=== PATIENT | male | born 1980 | race Caucasian/White ===

== ENCOUNTER 2016-05-19 06:48 | Emergency (ER) | payer OTHER, MEDICAID ==
[~2016-05-19] VITALS: Ht 172.7 cm; Wt 104.0 kg
[~2016-05-19 06:48] MED LIST: AMIT1TAB79 PO; BUSP5TAB PO; COLA100C3 PO; COZA25TA PO; HYDR-3533 PO; IBUP800T23 PO
[2016-05-19 06:53] VITALS: BP 138/106; PULSE 84; RESP 16; TEMP 97.5; O2SAT 95
[2016-05-19] MEDS ORDERED: PERC10TA27 PO (07:09)
[2016-05-19] MEDS ORDERED: predniSONE 20 MG TAB PO ONE (07:15)
[2016-05-19] MEDS ORDERED: AZITHROMYCIN 250 MG TAB PO ONE (07:15)
[2016-05-19] MEDS ORDERED: SODIUM CHLORIDE 0.9% FLUSH 5 ML FLUSH IVF PRN (07:15)
[2016-05-19] MEDS: RESP: ALBUTEROL 2.5 MG/IPRATROPIUM 0.5 MG NEB (SCH) INH ×2 (07:18→07:19)
--- NOTE | 2016-05-19 07:32 | RADHPO ---
EXAM DATE/TIME: 05/19/2016 07:17 [place] COMPARISON: No previous studies available for comparison. INDICATIONS : Short of breath, cough MEDICAL HISTORY : None. SURGICAL HISTORY : None. ENCOUNTER: Initial ACUITY: 3 days PAIN SCORE: 0/10 LOCATION: Bilateral chest FINDINGS: Portable AP view of the chest demonstrates a normal-sized cardiac silhouette. No effusion, consolidat ion, or pneumothorax is visualized. The bones and soft tissues demonstrate no acute abnormality. CONCLUSION: No acute cardiopulmonary abnormality is identified. Frantz Corrales MD on May 19, 2016 at 7:26 Board Certified Radiologist. This report was verified electronically.
[2016-05-19] MEDS ORDERED: VENTAER INH (08:01)
[2016-05-19] MEDS ORDERED: PRED-503 PO (08:01)
[2016-05-19] MEDS ORDERED: ZITHTAB PO (08:01)
--- NOTE | 2016-05-19 08:05 | PD ---
HPI Chief Complaint: Cold / Flu Symptoms Time Seen by Provider: 07:00 Travel History International Travel<30 days: No Contact w/Intl Traveler<30days: No Traveled to known affect area: No History of Present Illness HPI 35-year-old man who presents to the emergency department complaining of intermittent breathing problems for 2 years, treated with an inhaler in the past , no definite history of asthma. No diagnosis. Is a worsening shortness of breath especially at night over the past several days associated with cough, chills, no fever. Profundus or symptoms at home. He otherwise had been feeling generally well and healthy. History Past Medical History Narrative Medical On chronic opiates for chronic headache following TBI Hypertension Depression Social History Alcohol Use: Yes (weekly) Tobacco Use: Yes (1 pack per 3 months) Allergies-Medications (Allergen,Severity, Reaction): Coded Allergies: Codeine (Verified Allergy, Unknown, 05/19/16) Reported Meds & Prescriptions Reported Meds & Active Scripts Active Reported Percocet (Oxycodone-Acetaminophen) 10-325 mg Tab 1 Tab PO Q4H PRN Ibuprofen 800 Mg Tab 800 Mg PO TID Cozaar (Losartan Potassium) 25 Mg Tab 12.5 Mg PO DAILY Buspirone (Buspirone HCl) 5 Mg Tab 5 Mg PO DAILY Review of Systems Except as stated in HPI: all other systems reviewed are Neg Physical Exam Narrative GENERAL: A 35-year-old man, no acute distress. SKIN: Warm and dry. HEAD: Atraumatic. Normocephalic. EYES: Pupils equal and round. No scleral icterus. No injection or drainage. ENT: No nasal bleeding or discharge. Mucous membranes pink and moist. NECK: Trachea midline. No JVD. CARDIOVASCULAR: Regular rate and rhythm. No murmur appreciated. RESPIRATORY: Coarse breath sounds with moderate diffuse wheezing. GASTROINTESTINAL: Abdomen soft, non-tender, nondistended. Hepatic and splenic margins not palpable. MUSCULOSKELETAL: No obvious deformities. No edema. NEUROLOGICAL: Awake and alert. No obvious cranial nerve deficits. Motor grossly within normal limits. Normal speech. PSYCHIATRIC: Appropriate mood and affect; insight and judgment normal. Data Data Last Documented VS Vital Signs Date Time Temp Pulse Resp B/P Pulse Ox O2 Delivery O2 Flow Rate FiO2 05/19/16 06:53 97.5 84 16 138/106 95 Orders Influenzae A/B Antigen (05/19/16 07:08) Chest, Single Ap (05/19/16 07:08) Sodium Chloride 0.9% Flush (Ns Flush) (05/19/16 07:15) Albuterol-Ipratropium Neb (Duoneb Neb) (05/19/16 07:15) Azithromycin (Zithromax) (05/19/16 07:15) Prednisone (Deltasone) (05/19/16 07:15) MDM Medical Decision Making Medical Screen Exam Complete: Yes Emergency Medical Condition: Yes Interpretation(s) Flu negative X-ray negative Differential Diagnosis URI, asthma, pneumonia, flu, other Narrative Course Medical decision making 35-year-old man with history of shortness of breath problems, greater diagnosis , presents with cough congestion and wheezing. Audible wheezing on exam. Suspect reactive airway disease/asthma/COPD. Looks well. Given bronchodilators with significant improvement. Continue steroid bronchodilators and antibiotics. Diagnosis Primary Impression: Acute bronchitis Qualified Code: J20.9 - Acute bronchitis, unspecified organism Additional Impression: Reactive airway disease Qualified Code: J45.909 - Reactive airway disease, unspecified asthma severity , uncomplicated Additional Instructions: Take antibiotics as prescribed. Use albuterol every 4 hours until symptoms resolve. Take antibiotics as prescribed. Return to the emergency department for any worsening trouble breathing, no new or worsening symptoms. Follow-up with her primary doctor in 4 days. Med/Other Pt SpecificInfo: Prescription(s) given Scripts Albuterol 18 GM Inh (Ventolin Hfa 18 GM Inh)90 Mcg/Act Aer2 Puff INH Q4-6H PRN ( SHORTNESS OF BREATH) #1 INHALER Prov:Aniceto Queen MD 05/19/16 Prednisone (Deltasone)20 Mg Tab60 Mg PO DAILY 5 Days Prov:Aniceto Queen MD 05/19/16 Azithromycin (Zithromax Z-Horace)250 Mg [id number] Mg PO DIRECTED #1 DSPK 500 MG (2 tabs) day 1, then 1 tab days 2-5. Prov:Aniceto Queen MD 05/19/16 Disposition: 01 DISCHARGE HOME Condition: Stable Aniceto Queen MD May 19, 2016 08:05
== END 2016-05-19 08:11 | disposition home or self-care (01) ==
LOC: PHED 06:48
DX: J20.9 Acute bronchitis, unspecified (principal); J45.909 Unspecified asthma, uncomplicated; I10 Essential (primary) hypertension; R51 Headache; Z79.891 Long term (current) use of opiate analgesic; Z72.0 Tobacco use
CPT/HCPCS: 71010; 87804; 94640; 94664; 99285; J7512

== ENCOUNTER 2017-01-19 01:03 | Emergency (ER) | payer MEDICAID, OTHER ==
[~2017-01-19 01:03] MED LIST changes: -AMIT1TAB79 PO; -COLA100C3 PO; -HYDR-3533 PO; +PERC10TA27 PO; +PRED-503 PO; +VENTAER INH; +ZITHTAB PO
[2017-01-19 01:05] VITALS: BP 159/90; PULSE 116; RESP 20; TEMP 98.9; O2SAT 99
--- NOTE | 2017-01-19 01:36 | PD ---
HPI Chief Complaint: Psychiatric Symptoms Time Seen by Provider: 01:26 Travel History International Travel<30 days: No Contact w/Intl Traveler<30days: No Traveled to known affect area: No History of Present Illness HPI 36-year-old male presents to the Emergency Department voluntarily for psychiatric evaluation and treatment. He states that he has been using IV drugs including Dilaudid, fentanyl, and heroin but wants to stop. He denies SI/HI. He also follows the [facility] for his [facility] care and brought a list of his medical history. [facility] Past Medical History Depression: Yes Cardiovascular Problems: Yes (HTN) Diminished Hearing: No Headaches: Yes Hypertension: Yes Neurologic: Yes (TBI WITH BOLT ) Psychiatric: Yes (mood disorder) Respiratory: Yes (ASTHMA) Past Surgical History Other Surgery: Yes (BOLT AFTER TBI FROM [place]UD IN [place] ) Social History Alcohol Use: Yes (FREQUENT) Tobacco Use: No ('SOMETIMES' ) Substance Use: Yes (HEROIN-LAST USED 01/17/17, DILAUDID-01/18/17 ) Allergies-Medications (Allergen,Severity, Reaction): Coded Allergies: codeine (Unverified Allergy, Unknown, 01/19/17) Reported Meds & Prescriptions Reported Meds & Active Scripts Active Ventolin Hfa 18 GM Inh (Albuterol Sulfate) 90 Mcg/Act Aer 2 Puff INH Q4-6H PRN Deltasone (Prednisone) 20 Mg Tab 60 Mg PO DAILY 5 Days Zithromax Z-Horace (Azithromycin) 250 Mg Dspk 250 Mg PO DIRECTED 500 MG (2 tabs) day 1, then 1 tab days 2-5. Reported Percocet (Oxycodone-Acetaminophen) 10-325 mg Tab 1 Tab PO Q4H PRN Ibuprofen 800 Mg Tab 800 Mg PO TID Cozaar (Losartan Potassium) 25 Mg Tab 12.5 Mg PO DAILY Buspirone (Buspirone HCl) 5 Mg Tab 5 Mg PO DAILY Review of Systems Except as stated in HPI: all other systems reviewed are Neg Musculoskeletal: Positive: Limited ROM (Chronic sciatica pain left leg) Psychiatric: Positive: Anxiety, Substance Abuse Physical Exam Narrative GENERAL: Well-developed well-nourished in mild distress laying flat on bed. SKIN: Focused skin assessment warm/dry. HEAD: Atraumatic. Normocephalic. EYES: Pupils equal and round. No scleral icterus. No injection or drainage. ENT: No nasal bleeding or discharge. Mucous membranes pink and moist. NECK: Trachea midline. No JVD. CARDIOVASCULAR: Regular rate and rhythm. No murmur appreciated. RESPIRATORY: No accessory muscle use. Breath sounds equal bilaterally. GASTROINTESTINAL: Abdomen soft, non-tender, nondistended. Hepatic and splenic margins not palpable. MUSCULOSKELETAL: No obvious deformities. No clubbing. No cyanosis. No edema. NEUROLOGICAL: Awake and alert. No obvious cranial nerve deficits. Motor grossly within normal limits. Normal speech. PSYCHIATRIC: Mood is appropriate, Data Data Last Documented VS Vital Signs Date Time Temp Pulse Resp B/P (MAP) Pulse Ox O2 Delivery O2 Flow Rate FiO2 01/19/17 06:12 83 16 133/90 (104) 97 Room Air 01/19/17 01:05 98.9 Orders Orders Complete Blood Count With Diff (01/19/17 01:23) Basic Metabolic Panel (Bmp) (01/19/17 01:23) Psych Screen (01/19/17 01:23) Drug Screen, Random Urine (01/19/17 01:23) Alcohol (Ethanol) (01/19/17 01:23) Diet Regular Basic (01/19/17 Breakfast) Labs Laboratory Tests Test 01/19/17 01:45 White Blood Count 11.7 TH/MM3 Red Blood Count 4.73 MIL/MM3 Hemoglobin 14.7 GM/DL Hematocrit 43.4 % Mean Corpuscular Volume 91.7 FL Mean Corpuscular Hemoglobin 31.0 PG Mean Corpuscular Hemoglobin Concent 33.8 % Red Cell Distribution Width 13.5 % Platelet Count 333 TH/MM3 Mean Platelet Volume 7.5 FL Neutrophils (%) (Auto) 60.3 % Lymphocytes (%) (Auto) 24.6 % Monocytes (%) (Auto) 11.3 % Eosinophils (%) (Auto) 3.4 % Basophils (%) (Auto) 0.4 % Neutrophils # (Auto) 7.1 TH/MM3 Lymphocytes # (Auto) 2.9 TH/MM3 Monocytes # (Auto) 1.3 TH/MM3 Eosinophils # (Auto) 0.4 TH/MM3 Basophils # (Auto) 0.1 TH/MM3 CBC Comment DIFF FINAL Differential Comment Blood Urea Nitrogen 14 MG/DL Creatinine 0.83 MG/DL Random Glucose 109 MG/DL Calcium Level 8.6 MG/DL Sodium Level 138 MEQ/L Potassium Level 4.1 MEQ/L Chloride Level 104 MEQ/L Carbon Dioxide Level 29.0 MEQ/L Anion Gap 5 MEQ/L Estimat Glomerular Filtration Rate 105 ML/MIN Urine Opiates Screen POS Urine Barbiturates Screen NEG Urine Amphetamines Screen NEG Urine Benzodiazepines Screen POS Urine Cocaine Screen NEG Urine Cannabinoids Screen NEG Ethyl Alcohol Level 16 MG/DL MDM Medical Decision Making Medical Screen Exam Complete: Yes Emergency Medical Condition: Yes Differential Diagnosis Major depressive episode vs polysubstance abuse Narrative Course 36-year-old male [employer] presents to the Emergency Department voluntarily for psychiatric evaluation and treatment. He states that he has been using IV drugs including Dilaudid, fentanyl, and heroin but wants to stop. He also follows the [facility] for his health care and brought a list of his medical history. He says he is noncompliant with prescribed medications. Denies SI/HI. Labs are consistent with patients story of drug use but otherwise noncontributory. Mental health screening discussed with the patient. Psychiatric screen ordered. Diagnosis Primary Impression: Substance induced mood disorder Condition: Stable Joann Lentz Jan 19, 2017 01:36
[2017-01-19 02:22] LABS: AUTOMATED NEUTROPHIL # 7.1 TH/MM3 (1.8-7.7); BASOPHIL # 0.1 TH/MM3 (0-0.2); BASOPHIL % 0.4 % (0.0-2.0); EOSINOPHIL # 0.4 TH/MM3 (0-0.4); EOSINOPHIL % 3.4 % (0.0-4.0); HEMATOCRIT 43.4 % (39.0-51.0); HEMO FLAGS DIFF FINAL; LYMPH % 24.6 % (9.0-44.0); LYMPHOCYTE # 2.9 TH/MM3 (1.0-4.8); MEAN CELL VOLUME 91.7 FL (80.0-100.0); MEAN CORPUSCULAR HGB CONC 33.8 % (32.0-36.0); MONO % 11.3 % (0.0-8.0); NEUT % 60.3 % (16.0-70.0); PLATELET COUNT 333 TH/MM3 (150-450); RED BLOOD COUNT 4.73 MIL/MM3 (4.50-5.90); RED CELL DISTRIBUTION WIDTH 13.5 % (11.6-17.2); WHITE BLOOD COUNT 11.7 TH/MM3 (4.0-11.0)
[2017-01-19 02:48] LABS: POTASSIUM 4.1 MEQ/L (3.5-5.1)
[2017-01-19 06:12] VITALS: BP 133/90; PULSE 83; RESP 16; O2SAT 97
[2017-01-19 12:30] VITALS: BP 128/89; PULSE 85; O2SAT 98
--- NOTE | 2017-01-19 14:37 | PD ---
Data Data Last Documented VS Vital Signs Date Time Temp Pulse Resp B/P (MAP) Pulse Ox O2 Delivery O2 Flow Rate FiO2 01/19/17 18:32 01/19/17 12:30 85 98 01/19/17 06:12 16 Room Air 01/19/17 01:05 98.9 Orders Orders Complete Blood Count With Diff (01/19/17 01:23) Basic Metabolic Panel (Bmp) (01/19/17 01:23) Psych Screen (01/19/17 01:23) Drug Screen, Random Urine (01/19/17 01:23) Alcohol (Ethanol) (01/19/17 01:23) Diet Regular Basic (01/19/17 Breakfast) Diet Regular Basic (01/19/17 Lunch) Labs Laboratory Tests Test 01/19/17 01:45 White Blood Count 11.7 TH/MM3 Red Blood Count 4.73 MIL/MM3 Hemoglobin 14.7 GM/DL Hematocrit 43.4 % Mean Corpuscular Volume 91.7 FL Mean Corpuscular Hemoglobin 31.0 PG Mean Corpuscular Hemoglobin Concent 33.8 % Red Cell Distribution Width 13.5 % Platelet Count 333 TH/MM3 Mean Platelet Volume 7.5 FL Neutrophils (%) (Auto) 60.3 % Lymphocytes (%) (Auto) 24.6 % Monocytes (%) (Auto) 11.3 % Eosinophils (%) (Auto) 3.4 % Basophils (%) (Auto) 0.4 % Neutrophils # (Auto) 7.1 TH/MM3 Lymphocytes # (Auto) 2.9 TH/MM3 Monocytes # (Auto) 1.3 TH/MM3 Eosinophils # (Auto) 0.4 TH/MM3 Basophils # (Auto) 0.1 TH/MM3 CBC Comment DIFF FINAL Differential Comment Blood Urea Nitrogen 14 MG/DL Creatinine 0.83 MG/DL Random Glucose 109 MG/DL Calcium Level 8.6 MG/DL Sodium Level 138 MEQ/L Potassium Level 4.1 MEQ/L Chloride Level 104 MEQ/L Carbon Dioxide Level 29.0 MEQ/L Anion Gap 5 MEQ/L Estimat Glomerular Filtration Rate 105 ML/MIN Urine Opiates Screen POS Urine Barbiturates Screen NEG Urine Amphetamines Screen NEG Urine Benzodiazepines Screen POS Urine Cocaine Screen NEG Urine Cannabinoids Screen NEG Ethyl Alcohol Level 16 MG/DL [facility] Medical Record Reviewed: Yes Supervised Visit with [facility]: Yes Narrative Course Patient is here voluntarily after abusing intravenous opioids. He denies suicidal and homicidal ideation. After sitting in a chair for a few hours the patient requested to leave hospital. He understands he can return any time. This presentation is concerning for mood disorder related to drug abuse And/ or PTSD. Patient states the feeling much better after leaving the hospital and Diagnosis Primary Impression: Substance induced mood disorder Disposition: 01 DISCHARGE HOME Condition: Stable Juan Carlos Kimbrough MD Jan 19, 2017 14:37
== END 2017-01-19 18:34 | disposition left against medical advice (07) ==
LOC: NEPD 01:03 → NEDAMB 18:34
DX: F19.94 Other psychoactive substance use, unspecified with psychoactive substance-induced mood disorder (principal); I10 Essential (primary) hypertension; Z86.59 Personal history of other mental and behavioral disorders; Z86.79 Personal history of other diseases of the circulatory system; Z87.820 Personal history of traumatic brain injury; Z87.09 Personal history of other diseases of the respiratory system; Z79.899 Other long term (current) drug therapy
CPT/HCPCS: 80048; 80307; 85025; 99283

== ENCOUNTER 2017-01-19 20:26 | Emergency (ER) | payer MEDICAID, OTHER ==
[~2017-01-19] VITALS: Ht 172.7 cm; Wt 101.5 kg
[2017-01-19 20:27] VITALS: BP 165/97; PULSE 109; RESP 16; TEMP 97.6; O2SAT 95
--- NOTE | 2017-01-19 22:29 | PD ---
HPI Chief Complaint: Psychiatric Symptoms Time Seen by Provider: 22:28 Travel History International Travel<30 days: No Contact w/Intl Traveler<30days: No Traveled to known affect area: No History of Present Illness HPI 36 year old male with history of PTSD, chronic pain, and IV drug abuse, presents to the emergency department voluntarily for psychiatric evaluation. Patient states that he does not want to kill himself by overdosing. He wants to get into detox. He states that if he does not get help he will likely kill himself. He has no active plan. No acute medical symptoms to report at this time. PFSH Past Medical History Depression: Yes Cardiovascular Problems: Yes (HTN) Diminished Hearing: No Headaches: Yes Hypertension: Yes Neurologic: Yes (TBI WITH BOLT ) Psychiatric: Yes (mood disorder, PTSD, AMNESIA) Respiratory: Yes (ASTHMA) Past Surgical History Other Surgery: Yes (BOLT AFTER TBI FROM IUD IN [place] ) Social History Alcohol Use: Yes (FREQUENT) Tobacco Use: Yes ('SOMETIMES' ) Substance Use: Yes (HEROIN-LAST USED 01/19/17, DILAUDID-01/19/17 ) Allergies-Medications (Allergen,Severity, Reaction): Coded Allergies: codeine (Unverified Allergy, Unknown, 01/19/17) Reported Meds & Prescriptions Reported Meds & Active Scripts Active Ventolin Hfa 18 GM Inh (Albuterol Sulfate) 90 Mcg/Act Aer 2 Puff INH Q4-6H PRN Deltasone (Prednisone) 20 Mg Tab 60 Mg PO DAILY 5 Days Zithromax Z-Horace (Azithromycin) 250 Mg Dspk 250 Mg PO DIRECTED 500 MG (2 tabs) day 1, then 1 tab days 2-5. Reported Percocet (Oxycodone-Acetaminophen) 10-325 mg Tab 1 Tab PO Q4H PRN Ibuprofen 800 Mg Tab 800 Mg PO TID Cozaar (Losartan Potassium) 25 Mg Tab 12.5 Mg PO DAILY Buspirone (Buspirone HCl) 5 Mg Tab 5 Mg PO DAILY Review of Systems Except as stated in HPI: all other systems reviewed are Neg Physical Exam Narrative GENERAL: Well-nourished, well-developed male patient, agitated, but without any acute distress. SKIN: Focused skin assessment warm/dry. HEAD: Normocephalic. EYES: No scleral icterus. No injection or drainage. NECK: Supple, trachea midline. No JVD or lymphadenopathy. CARDIOVASCULAR: Tachycardic rate and rhythm without murmurs, gallops, or rubs. RESPIRATORY: Breath sounds equal bilaterally. No accessory muscle use. GASTROINTESTINAL: Abdomen soft, non-tender, nondistended. MUSCULOSKELETAL: No cyanosis, or edema. BACK: Nontender without obvious deformity. No CVA tenderness. Data Data Last Documented VS Vital Signs Date Time Temp Pulse Resp B/P (MAP) Pulse Ox O2 Delivery O2 Flow Rate FiO2 01/19/17 23:24 84 18 148/90 (109) 01/19/17 20:27 97.6 95 Room Air Orders Orders Psych Screen (01/20/17 00:56) MDM Medical Decision Making Medical Screen Exam Complete: Yes Emergency Medical Condition: Yes Medical Record Reviewed: Yes Differential Diagnosis Mood disorder versus personality disorder versus adjustment reaction disorder Narrative Course 36-year-old male presents to the emergency department voluntarily for psychiatric evaluation. Patient states that he needs help and will likely kill himself by overdose if he does not get it. He is agitated but without distress. Labs from a repeated this evening as they were just on his last visit. He is medically cleared to undergo psychiatric screening for further evaluation and disposition. Mental health screening discussed with the patient. Psychiatric screen ordered. Diagnosis Primary Impression: Opiate dependence Qualified Codes: F11.29 - Opioid dependence with unspecified opioid-induced disorder Additional Impression: Substance induced mood disorder Condition: Stable Yamile Love Jan 19, 2017 22:29
[2017-01-19 23:24] VITALS: BP 148/90; PULSE 84; RESP 18
[2017-01-20 06:05] VITALS: BP 187/102; PULSE 88; RESP 18; O2SAT 99
[2017-01-20 11:14] VITALS: BP 135/92; PULSE 80; RESP 18; O2SAT 100
--- NOTE | 2017-01-20 11:38 | PD ---
History of Present Illness Chief Complaint: Psychiatric Symptoms Time Seen by Provider: 11:25 Travel History International Travel<30 Days: No Contact w/Intl Traveler<30days: No Known affected area: No Legal Status Legal Status: Voluntary History of Present Illness: History of Present Illness 36 year old male with history of PTSD, chronic pain, and IV drug abuse, presents to the emergency department voluntarily for psychiatric evaluation. Patient reports that he has relapsed and has been using heroin as well as benzos and that he wants to stop using. He also states that he does not want to kill himself by overdosing. He wants to get into detox. He states that if he does not get help he will likely kill himself. He has no active plan. No acute medical symptoms to report at this time. Patient seen. EMR reviewed. Current toxicology is positive opiates, benzos and BAL of 16. He is alert, oriented, cooperative, no psychosis, no michael. Mood is irritable. Speech is clear and logical. He states " I'm not going to kill myself". He also states that since he relapsed he is unable to stay with his mother, he is broke and has no place to go. He wants to go into detox treatment. He states that his case management r[facility], [facility] get [facility]." She wanted to do that before and I was not ready. [facility] [place] [facility] Past Medical History Depression: Yes Cardiovascular Problems: Yes (HTN) Diminished Hearing: No Headaches: Yes Hypertension: Yes Neurologic: Yes (TBI WITH BOLT ) Psychiatric: Yes (mood disorder, PTSD, AMNESIA) Respiratory: Yes (ASTHMA) Past Surgical History Other Surgery: Yes (BOLT AFTER TBI FROM IUD IN [place] ) Psychiatric History Psychiatric History Hx Psychiatric Treatment: Reports has been dx with PTSD History of Inpatient Treatment: No Guns or firearms in home: No Social History Hx Alcohol Use: Yes (FREQUENT) Hx Tobacco Use: Yes ('SOMETIMES' ) Hx Substance Use: Yes (HEROIN) Substance Use Type: Alcohol, Benzos (Valium,Xanax), Heroin Hx of Substance Use Treatment: No Family Psychiatric History Deneis Allergies-Medications (Allergen,Severity, Reaction): Coded Allergies: codeine (Unverified Allergy, Unknown, 01/19/17) Reported Meds & Prescriptions Reported Meds & Active Scripts Active No Active Prescriptions or Reported Medications Review of Systems Except as stated in HPI: all other systems reviewed are Neg Exam Alert: Yes [place]: Person (ox4) Mood: Angry Affect: Appropriate, Tearful Speech: Clear, Logical Eye Contact: Normal Memory Intact: Comment (No impairmetn) Hallucinations: Other (Negative) Delusions: No Suicidal: Ideation (deneis any) Homicidal: Ideation (deneis) Insight/Judgement Poor. not impaired MDM Medical Decision Making Medical Record Reviewed: Yes Assessment/Plan 36 year old male with history of PTSD, chronic pain, and IV drug abuse, presents to the emergency department voluntarily for psychiatric evaluation. Patient states that he does not want to kill himself by overdosing and wants to enter a detox program.. He states that if he does not get help he will likely kill himself from using drugs Patient reports he has been battling addiction for some time and has recently lost his insurance and was unable to get Suboxone. He has gradually relapsed and at this time wants to be able to get detox services. he states " I am not going to kill myself". He states that his case management rn Dion[facility] get [facility]." She wanted to do that before and I was not ready. He wants to be able to walk over to [facility] [place] to meet with his casemanger . He will be provided a cab to present himself [facility] from here. Psychiatrically clear for discharge Orders Orders Psych Screen (01/20/17 00:56) Diet Regular Basic (01/20/17 Breakfast) Diet Regular Basic (01/20/17 Lunch) Results Vital Signs Date Time Temp Pulse Resp B/P (MAP) Pulse Ox O2 Delivery O2 Flow Rate FiO2 01/20/17 11:14 80 18 135/92 (106) 100 Room Air 01/20/17 06:05 88 18 187/102 (130) 99 01/19/17 23:24 84 18 148/90 (109) 01/19/17 20:27 97.6 109 16 165/97 (119) 95 Room Air Diagnosis Primary Impression: Opiate dependence Additional Impression: Substance induced mood disorder Psychiatrically Cleared: Yes Med/ Other Pt Specific Info: No Meds Exist/No RX given Prescriptions No Active Prescriptions or Reported Meds Disposition: 01 DISCHARGE HOME Condition: Stable Problem Qualifiers Primary Impression: Opiate dependence Qualified Codes: F11.29 - Opioid dependence with unspecified opioid-induced disorder Myrna Carrera Jan 20, 2017 11:38
[2017-01-20 11:51] VITALS: BP 135/92; PULSE 80; RESP 18; O2SAT 100
--- NOTE | 2017-01-20 11:52 | PD ---
Physical Exam Date Seen by Provider: Jan 20, 2017 Time Seen by Provider: 11:50 Narrative 36-year-old male previously seen by psychiatric services for complaints of PTSD , and multiple substance abuse. Patient was cleared psychiatrically, and medically is stable. The plan is for him to go directly to the [place] for [place] for substance abuse detox. He is medically cleared for discharge Data Data Last Documented VS Vital Signs Date Time Temp Pulse Resp B/P (MAP) Pulse Ox O2 Delivery O2 Flow Rate FiO2 01/20/17 11:14 80 18 135/92 (106) 100 Room Air 01/19/17 20:27 97.6 Orders Orders Psych Screen (01/20/17 00:56) Diet Regular Basic (01/20/17 Breakfast) Diet Regular Basic (01/20/17 Lunch) MDM Medical Record Reviewed: Yes Supervised Visit with [facility]: Yes Narrative Course 36-year-old male previously seen by psychiatric services for complaints of PTSD , and multiple substance abuse. Patient was cleared psychiatrically, and medically is stable. The plan is for him to go directly to the [place] for admission for substance abuse detox. He is medically cleared for discharge Diagnosis Primary Impression: Opiate dependence Qualified Codes: F11.29 - Opioid dependence with unspecified opioid-induced disorder Additional Impression: Substance induced mood disorder Patient Instructions: General Instructions Additional Instruction: 36-year-old male previously seen by psychiatric services for complaints of PTSD , and multiple substance abuse. Patient was cleared psychiatrically, and medically is stable. The plan is for him to go directly to the [place] for admission for substance abuse detox. He is medically cleared for discharge Scripts No Active Prescriptions or Reported Meds Disposition: 01 DISCHARGE HOME Condition: Stable Arjun Simpson Jan 20, 2017 11:52
== END 2017-01-20 12:49 | disposition home or self-care (01) ==
LOC: NEPJ 20:26
DX: F11.29 Opioid dependence with unspecified opioid-induced disorder (principal); F19.94 Other psychoactive substance use, unspecified with psychoactive substance-induced mood disorder; I10 Essential (primary) hypertension; Z72.0 Tobacco use; Z86.59 Personal history of other mental and behavioral disorders; Z86.79 Personal history of other diseases of the circulatory system; Z87.820 Personal history of traumatic brain injury; Z87.09 Personal history of other diseases of the respiratory system
CPT/HCPCS: 99284

== ENCOUNTER 2017-03-18 23:21 | Emergency (ER) | payer OTHER ==
[~2017-03-18] VITALS: Ht 172.7 cm; Wt 95.0 kg
[2017-03-18 23:25] VITALS: BP 136/89; PULSE 110; RESP 24; TEMP 98.7; O2SAT 96
[2017-03-18] MEDS ORDERED: SUBO8MIS SL (23:34)
--- NOTE | 2017-03-19 00:03 | PD ---
HPI Chief Complaint: Respiratory Symptoms Time Seen by Provider: 23:57 Travel History International Travel<30 days: No Contact w/Intl Traveler<30days: No Traveled to known affect area: No History of Present Illness HPI 2 days of worsening sob, wheezing, nonprod cough, alleviated with albuterol however, he has been out of it for about a week. pt admits to smoking [facility] Past Medical History Depression: Yes Cardiovascular Problems: Yes (HTN) Diminished Hearing: No Headaches: Yes Hypertension: Yes Neurologic: Yes (TBI WITH BOLT ) Psychiatric: Yes (mood disorder, PTSD, AMNESIA) Respiratory: Yes (ASTHMA) Tetanus Vaccination: < 5 Years Influenza Vaccination: No Past Surgical History Other Surgery: Yes (BOLT AFTER TBI FROM IUD IN [place] ) Social History Alcohol Use: No (DENIES) Tobacco Use: Yes ('SOMETIMES' ) Substance Use: No (HX HEROIN) Allergies-Medications (Allergen,Severity, Reaction): Coded Allergies: codeine (Verified Allergy, Unknown, 03/18/17) Reported Meds & Prescriptions Reported Meds & Active Scripts Active Cipro (Ciprofloxacin HCl) 500 Mg Tab 500 Mg PO BID 5 Days Ventolin Hfa 18 GM Inh (Albuterol Sulfate) 90 Mcg/Act Aer 2 Puff INH Q4-6H PRN Medrol Dosepak (Methylprednisolone) 4 Mg Dspk 4 Mg PO DIRECTED Per Pharmacist direction Reported Suboxone Sublingual Film (Buprenorphine-Naloxone Sublingual Film) 8-2 Mg Film 1 Film SL Unique ID number required: Review of Systems General / Constitutional: No: Fever Eyes: No: Visual changes HENT: No: Headaches Cardiovascular: No: Chest Pain or Discomfort Respiratory: Positive: Cough, Wheezing Gastrointestinal: No: Abdominal Pain Genitourinary: No: Dysuria Musculoskeletal: No: Pain Skin: No Rash Neurologic: No: Weakness Psychiatric: No: Depression Endocrine: No: Polydipsia Hematologic/Lymphatic: No: Easy Bruising Physical Exam Narrative GENERAL: SKIN: Warm and dry. HEAD: Atraumatic. Normocephalic. EYES: Pupils equal and round. No scleral icterus. No injection or drainage. ENT: No nasal bleeding or discharge. Mucous membranes pink and moist. NECK: Trachea midline. No JVD. CARDIOVASCULAR: Regular rate and rhythm. RESPIRATORY: generalized wheezing, no crackles, no accessory muscle use GASTROINTESTINAL: Abdomen soft, non-tender, nondistended. MUSCULOSKELETAL: Extremities without clubbing, cyanosis, or edema. No obvious deformities. NEUROLOGICAL: Awake and alert. No obvious cranial nerve deficits. Motor grossly within normal limits. Five out of 5 muscle strength in the arms and legs. Normal speech. PSYCHIATRIC: Appropriate mood and affect; insight and judgment normal. Data Data Last Documented VS Vital Signs Date Time Temp Pulse Resp B/P (MAP) Pulse Ox O2 Delivery O2 Flow Rate FiO2 03/19/17 01:19 03/18/17 23:25 98.7 110 24 96 Orders Orders Chest, Single Ap (03/19/17 00:03) Iv Access Insert/Monitor (03/19/17 00:03) Methylprednisolone So Succ Inj (Solumedr (03/19/17 00:15) Albuterol Neb (Albuterol Neb) (03/19/17 00:15) Magnesium Sulfate 1 Gm Premix (Magnesium (03/19/17 00:15) Albuterol-Ipratropium Neb (Duoneb Neb) (03/19/17 01:15) [facility] Medical Decision Making Medical Screen Exam Complete: Yes Emergency Medical Condition: Yes Medical Record Reviewed: Yes Interpretation(s) pulse ox: normal plethwave, 95% and higher on ra, after breathing treatments, no tachypnea noted Differential Diagnosis pna v ptx v asthma exacerbation Narrative Course no ptx noted, cxr showed minimal rll infiltrate based on my personal reading will d/c patient on abx, steroids and inhaler. patient's pulse ox 94 or better on ra Diagnosis Primary Impression: Asthma exacerbation Qualified Codes: J45.21 - Mild intermittent asthma with (acute) exacerbation Patient Instructions: Asthma (ED), General Instructions Scripts Ciprofloxacin (Cipro) 500 Mg Tab 500 MG PO BID for Infection for 5 Days, #10 TAB 0 Refills Prov: Azael Odom MD 03/19/17 Albuterol 18 GM Inh (Ventolin Hfa 18 GM Inh) 90 Mcg/Act Aer 2 PUFF INH Q4-6H Y for SHORTNESS OF BREATH, #1 INHALER 0 Refills Prov: Azael Odom MD 03/19/17 Methylprednisolone Dosepak (Medrol Dosepak) 4 Mg Dspk 4 MG PO DIRECTED, #1 DSPK 0 Refills Per Pharmacist direction Prov: Azael Odom MD 03/19/17 Disposition: 01 DISCHARGE HOME Condition: Stable [place],Azael Shailesh MD Mar 19, 2017 00:03
[2017-03-19] MEDS ORDERED: methylPREDNISolone SOD SUCC 125 MG/2 ML VIAL IV PUSH ONE (00:15)
[2017-03-19] MEDS ORDERED: MAGNESIUM SULFATE 1 GM PREMIX 100 ML IV ONE (00:15)
[2017-03-19] MEDS: RESP: ALBUTEROL 2.5 MG/3 ML NEB (SCH) INH ×2 (00:20→00:21)
[2017-03-19] MEDS ORDERED: CIPR-9 PO (00:49)
[2017-03-19] MEDS ORDERED: VENTAER INH (00:49)
[2017-03-19] MEDS ORDERED: MEDR4PAK PO (00:49)
--- NOTE | 2017-03-19 00:56 | RADRPT ---
EXAM DATE/TIME: 03/19/2017 00:42 [place] COMPARISON: No previous studies available for comparison. INDICATIONS : Shortness of breath. MEDICAL HISTORY : None. SURGICAL HISTORY : None. ENCOUNTER: Initial ACUITY: 1 day PAIN SCORE: 0/10 LOCATION: Bilateral chest FINDINGS: A single view of the chest demonstrates the lungs to be symmetrically aerated without evidence of mas s, infiltrate or effusion. The cardiomediastinal contours are unremarkable. Osseous structures are intact. CONCLUSION: No evidence of acute cardiopulmonary disease. Frantz Evangelista MD on March 19, 2017 at 0:54 Board Certified Radiologist. This report was verified electronically.
[2017-03-19] MEDS ORDERED: RESP: ALBUTEROL 2.5 MG/IPRATROPIUM 0.5 MG NEB (SCH) INH ONE (01:15)
== END 2017-03-19 01:20 | disposition home or self-care (01) ==
LOC: NEPD 23:21
DX: J45.21 Mild intermittent asthma with (acute) exacerbation (principal); I10 Essential (primary) hypertension; Z72.0 Tobacco use; Z86.59 Personal history of other mental and behavioral disorders; Z87.820 Personal history of traumatic brain injury; Z86.79 Personal history of other diseases of the circulatory system; Z87.09 Personal history of other diseases of the respiratory system; Z86.69 Personal history of other diseases of the nervous system and sense organs
CPT/HCPCS: 71010; 94640; 94664; 96374; 96375; 99284; J2930; J3475; J7613